=== PATIENT | female | born 1990 | race African-American/Black ===

== ENCOUNTER 2018-08-22 21:44 | Emergency (ER) | payer SELFPAY ==
[2018-08-22 21:56] VITALS: BP 127/81; PULSE 73; TEMP 98.7; BMI 23.8
--- NOTE | 2018-08-22 21:56 | PDOC ---
Rapid Medical Evaluation Time Seen by Provider: 08/22/18 21:54 Medical Evaluation: 08/22/18 21:54 I have performed a brief in-person evaluation of this patient. The patient presents with a chief complaint of: R sided facial pain x 3 days, no dental pain, sore throat, f/c. No recent dental procedures. No pmhx Pertinent physical exam findings:Unremarkable I have ordered the following:nothing The patient will proceed to the ED for further evaluation. Discharge Disposition - Diagnosis Facial pain - Referrals - Patient Instructions - Post Discharge Activity
[2018-08-22] MEDS ORDERED: ACETAMINOPHEN WITH CODEINE 300MG/30MG TABLET PO ONE (22:03)
[2018-08-22] MEDS ORDERED: AMOXICILLIN 500 MG CAPSULE (FP) PO ONE (22:03)
[2018-08-22] MEDS ORDERED: AMOXICILLIN 250 MG CAPSULE ONE (22:07)
[2018-08-22] MEDS ORDERED: ACETAMINOPHEN WITH CODEINE 300MG/30MG TABLET ONE (22:07)
--- NOTE | 2018-08-22 22:09 | PDOC ---
History of Present Illness - General Chief Complaint: Toothache Stated Complaint: Toothache/EARACHE Time Seen by Provider: 08/22/18 21:54 History Source: Patient Exam Limitations: No Limitations - History of Present Illness Initial Comments: 08/22/18 22:04 28 yr female with pain to the right ear and the right lower wisdom tooth. no fever. pain for one week. pt has appointment with her dentist on Sep 18. Severity: mild Past History - Past Medical History Allergies/Adverse Reactions: Allergies Allergy/AdvReac Type Severity Reaction Status Date / Time No Known Allergies Allergy Verified 08/22/18 21:54 Home Medications: Ambulatory Orders Acetaminophen [Tylenol -] 500 mg PO Q6H PRN #20 tablet 08/22/18 Amoxicillin - [Amoxicillin 500mg Capsule -] 500 mg PO BID #14 capsule 08/22/18 Ibuprofen 800 mg PO TID PRN #20 tablet 08/22/18 COPD: No - Suicide/Smoking/Psychosocial Hx Smoking History: Current every day smoker Number of Cigarettes Smoked Daily: 3 Information on smoking cessation initiated: No *Physical Exam - Vital Signs Last Vital Signs Temp Pulse Resp BP Pulse Ox 98.7 F 73 18 127/81 100 08/22/18 21:54 08/22/18 21:54 08/22/18 21:54 08/22/18 21:54 08/22/18 21:54 Moderate Sedation - Procedure Monitoring Vital Signs: Procedure Monitoring Vital Signs Temperature 98.7 F 08/22/18 21:54 Pulse Rate 73 08/22/18 21:54 Respiratory Rate 18 08/22/18 21:54 Blood Pressure 127/81 08/22/18 21:54 O2 Sat by Pulse Oximetry (%) 100 08/22/18 21:54 *DC/Admit/Observation/Transfer Diagnosis at time of Disposition: Facial pain, Tooth infection - Discharge Dispostion Disposition: HOME - Prescriptions Prescriptions: Acetaminophen [Tylenol -] 500 mg PO Q6H PRN #20 tablet PRN Reason: Pain Amoxicillin - [Amoxicillin 500mg Capsule -] 500 mg PO BID #14 capsule Ibuprofen 800 mg PO TID PRN #20 tablet PRN Reason: Pain - Referrals - Patient Instructions Printed Discharge Instructions: DI for Impacted Tooth, DI for Tooth Decay Additional Instructions: take the antibiotic as directed gargle with warm salt water 4-5 times a day take extra strength tylenol for pain with ibuprofen 800mg every 8hrs follow with the dentist as soon as you can see them - Post Discharge Activity
== END 2018-08-22 22:27 | disposition home or self-care (01) ==
LOC: JERFT 21:44
DX: K04.7 Periapical abscess without sinus (principal); K08.89 Other specified disorders of teeth and supporting structures
CPT/HCPCS: 99281-25